=== PATIENT | male | born 1995 | race Two or more races ===

== ENCOUNTER 2021-10-30 22:22 | Emergency (ER) | payer MEDICAID, OTHER ==
[~2021-10-30] VITALS: Ht 172.7 cm; Wt 86.3 kg
[2021-10-30] MEDS ORDERED: ceFAZolin 1GM/50ML 50 ML IV ONE (22:45)
[2021-10-30] MEDS ORDERED: ROCURONIUM 10MG/ML 10ML VIAL IV ONE (22:53)
[2021-10-30 23:27] VITALS: BP 150/90
[2021-10-30] MEDS ORDERED: MIDAZOLAM DRIP 50 mg/50mL 50 ML IV ONE (23:37)
== END 2021-10-31 02:43 | disposition short-term general hospital (02) ==
LOC: ER 22:22
DX: S31.133A Puncture wound of abdominal wall without foreign body, right lower quadrant without penetration into peritoneal cavity, initial encounter (principal); W34.09XA Accidental discharge from other specified firearms, initial encounter; Y93.89 Activity, other specified; Y92.89 Other specified places as the place of occurrence of the external cause; Y99.8 Other external cause status
CPT/HCPCS: 31500; 36556; 36600; 71045; 82805; 87070; 87205; 93005; 96365; 99291; J2250; 94002

== ENCOUNTER 2023-09-09 03:11 | Emergency (ER) | payer MEDICAID ==
[~2023-09-09] VITALS: Ht 175.3 cm; Wt 122.9 kg
[2023-09-09 03:55] VITALS: BP 115/68; PULSE 99; RESP 16; TEMP 98.4; O2SAT 95
[2023-09-09] MEDS ORDERED: IBUP-1455 PO (05:11)
[2023-09-09] MEDS: KETOROLAC TROMETH 30 MG/ML 1ML VIAL IM ONE (05:15)
== END 2023-09-09 05:22 | disposition home or self-care (01) ==
LOC: ER 03:11
DX: M79.605 Pain in left leg (principal); M79.604 Pain in right leg
CPT/HCPCS: 96372; 99283; J1885